=== PATIENT | female | born 1940 | race Caucasian/White ===

== ENCOUNTER → 2017-06-06 | Day surgery (SDC) | payer MEDICARE, BC ==
[~2017-06-06] MED LIST: CYCL-36 PO; HYDROCORTISONE SOD SUCCINATE 100 MG VIAL ONE; IOHEXOL 180 MG/ML 20 ML VIAL (for RAD DIAG) ONE; LACTATED RINGER'S 1000 ML INJ 1,000 ML ONE; LIDOCAINE 1.5%/EPINEPHrine 1:200,000 PF SOLN 30 ML AMP ONE; LISI-363 PO; LOVA1TAB47 PO; MIDAZOLAM HCL 2 MG/2 ML VIAL ONE; MS C15TA7 PO; ONDANSETRON HCL 4 MG/2 ML VIAL IV PUSH ONE; PRED5PAK PO; PROM25TA5 PO; PROPOFOL 200 MG/20 ML AMP IV ONE; RESP: ALBUTEROL 2.5 MG/3 ML NEB (SCH) ONE; SERT50 PO; SINE25100 PO; SODIUM CHLORIDE 0.9% INJ 0 ML ONE; SODIUM CHLORIDE 0.9% INJ 10 ML ONE; ZANA4CAP PO; ceFAZolin 2 GM PREMIX 50 ML ONE; ceFAZolin INJ 1,000 MG VIAL ONE
--- NOTE | 2017-06-06 09:25 | TN ---
cc: AMBER BUCK M.D., RICHARD GILLESPY,ASIM Bass M.D. Corrected Copy: 07/16/17 DATE OF SURGERY 06/06/2017 PREOPERATIVE DIAGNOSES Probable lung cancer. Lymphadenopathy. POSTOPERATIVE DIAGNOSES Probable lung cancer. Lymphadenopathy. PROCEDURE Left subclavian Bifinn-T-Aeoc placement under intraoperative fluoroscopy with fluoroscopic venography and left supraclavicular lymph node excisional biopsy. SURGEON Dr. Amber Buck ANESTHESIA General with laryngeal mask. INDICATIONS This is a very pleasant 76-year-old woman sent to me in consultation by Dr. Asim Palacios for evaluation of lymphadenopathy. The patient had noted palpable masses within her neck. She is a long-term smoker. Subsequent workup demonstrates a right side of bronchial-based mass with extensive mediastinal and cervical lymphadenopathy. INTRAOPERATIVE FINDINGS Successful placement of left subclavian Vcskcc-W-Wzef with tip of catheter in mid-superior vena cava. Fluoroscopic venography was performed which demonstrated contrast within a high-flow venous vessel in the chest. Left supraclavicular lymph node excised in its entirety and sent to pathology. ESTIMATED BLOOD LOSS Less than 10 mL. DESCRIPTION OF PROCEDURE IN DETAIL The patient was identified as Tracey Montes De Oca, taken to the operating room and placed in supine position. Sequential compression devices were placed on bilateral lower extremities. Following induction of adequate general anesthesia with a laryngeal mask, the patient's upper chest and neck and left supraclavicular area were prepped and draped in the usual sterile fashion with Betadine. A time-out procedure was performed. Following completion of the time-out procedure to everyone's satisfaction within the room, 0.5% lidocaine with epinephrine was injected in the left subclavian and left supraclavicular areas. The patient was placed in Trendelenburg position. The left subclavian vein was entered without difficulty using the introducer needle. There was some difficulty advancing the guidewire under direct fluoroscopic visualization. The guidewire was advanced into appropriate positioning as seen on C-arm fluoroscopy. Avvepa-T-Ivyc was placed in the Zysybe-R-Hywm pocket with the two 2-0 Prolene stay sutures. Its catheter was then cut to an appropriate length as seen on C-arm fluoroscopy, 17 cm, and dilator and dilating sheath were placed over the guidewire under direct fluoroscopic view, advanced without difficulty. The guidewire and dilator were removed and the catheter set to the dilating sheath, into appropriate position as seen on C-arm fluoroscopy. The intraoperative venography was performed with full strength IV contrast and the contrast flowed quickly into a large venous structure consistent with superior vena cava. The Npazyl-M-Ngkm was then flushed with heparinized saline and the Tkiiis-U-Bujl pocket closed in two layers with 3-0 Vicryl and 4-0 Monocryl. Attention was then turned to supraclavicular lymph node biopsy. Along the lines of Deanne local anesthetic was placed and a supraclavicular incision was carried out with the scalpel. Hemostasis was controlled with electrocautery. Dissection continued posteriorly through platysma muscle until a palpable pathologic node was discovered. It was carefully from surrounding tissues keeping the dissection directly on the lymph node as to avoid any surrounding nerve or lymphatic structure injury. The node was removed in its entirety. Lymphatic structures were ligated with 3-0 Vicryl ligature. The wound was irrigated with saline. A small bleeding point of fatty tissue was controlled with electrocautery. Local anesthetic was placed within the wound and was closed in layers with 3-0 Vicryl and 4-0 Monocryl. Dressings were applied, Mastisol and 1/2-inch brown Steri-Strips, Tegaderm with Telfa and Tegaderm over gauze were placed to complete the dressings. The patient tolerated the procedure without apparent complication. Sponge, needle and instrument counts were correct at the end of the case. ADDENDUM A portable chest x-ray has been ordered. MD PAWEL Hager/RALPH /8:57 AM /9:09 AM ESTELLA
== END | disposition home or self-care (01) ==
LOC: ESDC 06:25
PROVIDERS: ATTEND Surgery Trauma Surgery
DX: Z45.2 Encounter for adjustment and management of vascular access device (principal); F17.210 Nicotine dependence, cigarettes, uncomplicated
CPT/HCPCS: 00320; 00532; 36561; 38510; 77001; 88305; 88341; 88342; C1788; J0690; J1642; J1720; J2250; J2405; J3010; J7120; J7613; Q9965